=== PATIENT | male | born 1950 | race Caucasian/White ===

== ENCOUNTER 2023-06-06 10:49 | Emergency (ER) | payer MEDICARE, BC, SELFPAY ==
[2023-06-06 10:50] VITALS: BP 144/61; PULSE 54; RESP 23; TEMP 36.2; O2SAT 99; BMI 33.2
--- NOTE | 2023-06-06 11:09 | EKG12_ITS ---
Test Reason : CP Blood Pressure : / mmHG Vent. Rate : 052 BPM Atrial Rate : 052 BPM P-R Int : 180 ms QRS Dur : 080 ms QT Int : 450 ms P-R-T Axes : 000 019 033 degrees QTc Int : 418 ms Sinus bradycardia Otherwise normal ECG Confirmed by JAMA BALL, HATTIE ([id number]), newspaper or periodical editor MIA MINA ([id number]) on 06/13/2023 10:50:53 AM Referred By: RU/AR Confirmed By:HATTIE YUN MD
--- NOTE | 2023-06-06 11:10 | EDS_ITS ---
HPI History of Present Illness Chief Complaint: Chest Pain Narrative Narrative: 72-year-old male past medical history of angina states he has had chest pain for at least 20 years. He usually does not have to use any nitroglycerin or anything. He states he last had a catheterization in 2009 and had clean coronary arteries and they never had an explanation for why he gets this intermittent chest pain. He was at his primary care provider's office today at around 9:00, 2 hours ago, where he experienced 20 minutes of chest discomfort and achiness. States he broke out in a cold sweat, but no nausea or vomiting, no shortness of breath. He felt lightheaded and dizzy for just a moment, and then his symptoms resolved completely. He relates history that he is also had cough with a lot of phlegm production over the last 2 months. His legs swell especially at night for which she takes hydrochlorothiazide, and states that he has to take that at night because it is ineffective during the day. He presents because of the chest pain that he had at his doctor's office. He does not follow-up with a site acquisition manager currently because after he had his catheterization they were unsure as to the cause of his continued chest pain. [facility] Medical History Benign prostatic hyperplasia with lower urinary tract symptoms History of left heart catheterization Hypertension Home Medications epinephrine 0.3 mg/0.3 mL injection, auto-injector 0.3 mg (0.3 mL) IM X1 ##2 03/06/15 [Rx Last Taken Unknown] aspirin 81 mg chewable tablet 1 tab PO DAILY 06/06/23 [History Last Taken Unknown] carvedilol 25 mg tablet 25 mg PO DAILY 06/06/23 [History Last Taken Unknown] hydrochlorothiazide 12.5 mg capsule 12.5 mg PO DAILY 06/06/23 [History Last Taken Unknown] losartan 100 mg tablet 100 mg PO DAILY 06/06/23 [History Last Taken Unknown] montelukast 10 mg tablet 10 mg PO QHS 06/06/23 [History Last Taken Unknown] nifedipine 90 mg tablet,extended release 90 mg PO DAILY 06/06/23 [History Last Taken Unknown] nitroglycerin 0.4 mg sublingual tablet (Nitrostat) 0.4 mg sublingual Q5M 06/06/23 [History Last Taken Unknown] potassium chloride 20 mEq tablet,extended release(part/cryst) 20 meq PO DAILY 06/06/23 [History Last Taken Unknown] simvastatin 20 mg tablet 20 mg PO QHS 06/06/23 [History Last Taken Unknown] tadalafil 20 mg tablet 20 mg PO DAILY PRN 06/06/23 [History Last Taken Unknown] tamsulosin 0.4 mg capsule 0.4 mg PO QHS 06/06/23 [History Last Taken Unknown] venlafaxine 37.5 mg capsule,extended release 24 hr 37.5 mg PO DAILY 06/06/23 [History Last Taken Unknown] zolpidem 5 mg tablet 5 mg PO QHS PRN 06/06/23 [History Last Taken Unknown] Allergy/AdvReac Type Severity Reaction Status Date / Time No Known Allergies Allergy Verified 06/06/23 10:50 Surgical History Hx of appendectomy Social History Smoking Status: Never smoker ROS ROS ED ROS Narrative Constitutional: No fever, no chills. Broke out in a cold sweat. HEENT: No sore throat. No neck pain. No loss of vision. No rhinorrhea. Cardiovascular: Sternal chest achiness/discomfort, chest pain. No palpitations. Bilateral pedal edema. Respiratory: No cough, no shortness of breath. Abdominal: No abdominal pain. No nausea. No vomiting. Genitourinary: No dysuria. No hematuria. Musculoskeletal: No myalgias. No arthralgias. Neurologic: No headaches. No dizziness. Positive lightheadedness and resolved. Skin: No rash. No change in color. Psychiatric: No depression. No anxiety. EXAM Physical Exam Const Vital Signs: 06/06/23 10:50 06/06/23 10:52 06/06/23 11:24 Temperature 97.1 F L Temperature Source Oral Pulse Rate 54 L Respiratory Rate 23 H Respiratory Effort Normal Non-Labored Respiratory Pattern Normal Blood Pressure 144/61 H Blood Pressure Mean 88 Pulse Ox 99 94 Oxygen Delivery Method Room Air Room Air 06/06/23 13:00 Temperature Temperature Source Pulse Rate 57 L Respiratory Rate 15 Respiratory Effort Respiratory Pattern Blood Pressure 132/67 H Blood Pressure Mean 88 Pulse Ox 94 Oxygen Delivery Method Room Air MDM MDM MDM Narrative Medical decision making narrative: In the differential diagnosis is ACS versus aortic dissection versus pneumothorax versus pneumonia. I have low suspicion for aortic dissection as the history and physical does not support this and he does not have any tearing back pain. His symptoms have completely resolved. He has had history of angina in the past, and this is of unknown origin. Comprehensive chest pain work-up was pursued. I do not feel aspirin is indicated. EKG was obtained and interpreted by myself as sinus bradycardia at 52 bpm without ectopy or acute ST changes. No STEMI. I do feel serial troponins are indicated. I will also obtain a chest x-ray to help rule out a pneumonia. BNP was also obtained to rule out heart failure, but his pulse ox is 99% on room air and he is not ta chycardic, hence I do not feel that studies for PE are indicated. I reviewed his laboratory work from today and his white count is normal at 7.4, hemoglobin normal at 14.7, platelet count normal at 210. BMP shows normal sodium of 140, potassium also normal at 4.1 with chloride slightly elevated at 111 which I think is nonspecific. Glucose is appropriately elevated at 117 with a normal anion gap of 7. Initial high-sensitivity troponin is 12 with repeated 2 hours being 8. BNP is normal at 46.6. Chest x-ray 1 view interpreted by myself independently shows no evidence of an acute process. I reviewed the radiology report which confirms my independent interpretation. At this point in time, he is remained pain-free. This is similar to his previous chest pain that he had before and he was told by his primary care provider a long time ago that this may be coronary artery vasospasm. He has nitroglycerin at home when this happens. I feel he can be discharged safely home with follow-up to his primary care physician. He was also referred to the site acquisition manager on-call today, or he can follow-up with his previous site acquisition manager. This is as he has last been catheterized in 2009 and they can decide whether or not he requires another stress test or cardiac catheterization for his atypical chest pain. Return instructions were reviewed. Patient agreeable to the plan. I do not feel he r equires observation at this time. Disposition is discharged home in stable condition. History & Record Review Discussion w/independent historian: Patient and Friend Additional record(s) reviewed:: Prior ED visit Lab Data Attestation: I reviewed the patient's lab results. Labs: Laboratory Results - last 24 hr 06/06/23 06/06/23 11:15 13:15 WBC 7.4 RBC 4.53 L Hgb 14.7 Hct 42.9 MCV 94.7 H MCH 32.5 H MCHC 34.3 RDW Std Deviation 42.5 RDW Coeff of Rhina 12.3 Plt Count 210 MPV 9.9 Immature Gran % (Auto) 0.300 Neut % (Auto) 67.4 Lymph % (Auto) 18.6 L [place] % (Auto) 11.0 H Eos % (Auto) 2.0 Baso % (Auto) 0.7 Absolute Neuts (auto) 5.0 Absolute Lymphs (auto) 1.37 Nucleated RBC % 0 Sodium 140 Potassium 4.1 Chloride 111 H Carbon Dioxide 22.0 Anion Gap 7 BUN 26 H Creatinine 1.02 Estim Creat Clear Calc 58.21 Est GFR (MDRD) Af Amer 92 Est GFR (MDRD) Non-Af 76 BUN/Creatinine Ratio 25.5 H Glucose 117 H Calcium 9.7 Troponin I High Sens 12 8 B-Natriuretic Peptide 46.6 Radiography Diagnostic Testing: Clinical Impression(s) from Imaging Studies Chest X-Ray 06/06/23 11:25 IMPRESSION: No acute abnormality is seen. Electronically Signed: Saurabh Sandoval MD at 11:55 EST Reading Location ID and State: [facility] / [place] , Service support , Discharge Plan Triage Chief Complaint: Chest Pain ED Provider: Chase Dalton Dx/Rx/DC Orders Clinical Impression: Angina at rest, Chest pain Instructions: ED Chest Pain, Uncertain Cause Prescriptions: No Action epinephrine 0.3 MG syringe 0.3 mg IM X1 Qty: 2 0RF carvedilol 25 mg tablet 25 mg PO DAILY hydrochlorothiazide 12.5 mg capsule 12.5 mg PO DAILY losartan 100 mg tablet 100 mg PO DAILY montelukast 10 mg tablet 10 mg PO QHS nifedipine 90 mg tablet extended release 90 mg PO DAILY potassium chloride 20 mEq tablet,ER particles/crystals 20 meq PO DAILY simvastatin 20 mg tablet 20 mg PO QHS tadalafil 20 mg tablet 20 mg PO DAILY PRN Patient Comments: Take 1 tablet by mouth once daily As needed. tamsulosin 0.4 mg capsule 0.4 mg PO QHS zolpidem 5 mg tablet 5 mg PO QHS PRN Rx Instructions: 1 TABLET AT BEDTIME NEEDED FOR SEDATION FOR UP TO 21 DOSES venlafaxine 37.5 mg capsule,extended release 24hr 37.5 mg PO DAILY nitroglycerin [Nitrostat] 0.4 mg tablet, sublingual 0.4 mg sublingual Q5M Rx Instructions: do not exceed 3 doses per episode aspirin 81 mg tablet,chewable 1 tab PO DAILY Primary Care Provider: Pillo Sampson Referrals: Kaci Delgadillo MD [Med Staff - Active Staff] - As soon as possible Pillo Sampson MD [Primary Care Provider] - 3-5 Days Disposition Disposition: Home, Self Care
[2023-06-06 11:24] VITALS: O2SAT 94
--- NOTE | 2023-06-06 11:25 | RAD_ITS ---
STUDY: X-RAY CHEST REASON FOR EXAM: Male, 72 years old. Chest pain TECHNIQUE: Single AP portable view of the chest. COMPARISON: None. FINDINGS: EKG electrodes are seen. The lungs are clear and expanded. There is no demonstrated pleural abnormality. Normal size heart. Normal mediastinum and shayla. Normal visualized pulmonary arteries. There is atherosclerotic tortuosity of the aortic arch and descending thoracic aorta. There are diffuse degenerative changes of the visualized thoracic spine. Normal visualized ribs, clavicles, and shoulders. There is no demonstrated abnormality of the visualized soft tissue structures of the upper abdomen. RAD/Chest 1 View (Portable) IMPRESSION: No acute abnormality is seen. Electronically Signed: Saurabh Sandoval MD at 11:55 EST ,
[2023-06-06 11:28] LABS: Absolute Lymphocyte Count 1.37 X10^3/uL (0.83-4.51); Basophil# 0.05 X10^3/uL; Basophil% 0.7 % (0-1); Eosinophil# 0.15 X10^3/uL; Hematocrit 42.9 % (40-54); Hemoglobin 14.7 g/dL (13.0-16.5); Lymphocyte # 1.37 X10^3/ul (0.83-4.51); Lymphocyte % 18.6 % (19-41); Mean Corp Hgb Conc 34.3 g/dL (32-36); Mean Corpuscular Hgb 32.5 pg (27.0-32.0); Mean Corpuscular Volume 94.7 fL (80-94); Mean Platelet Vol. 9.9 fl (6.2-12.0); Monocyte# 0.81 X10^3/uL; NRBC Flagged by Analyzer 0 % (0-5); Neutrophil # 4.95 X10^3/uL (2.7-7.7); Neutrophil % 67.4 % (47-70); Platelet Count 210 K/mm3 (150-450); RBC Distribution Width CV 12.3 % (11.6-14.6); RBC Distribution Width SD 42.5 fl (35.1-43.9); Red Blood Count 4.53 M/mm3 (4.6-6.2); White Blood Count 7.4 K/mm3 (4.4-11.0)
[2023-06-06 11:44] LABS: Anion Gap 7 (5-15); BUN 26 mg/dL (7-18); BUN/Creat Ratio 25.5 RATIO (10-20); Calcium,Total 9.7 mg/dL (8.5-10.1); Chloride 111 mmol/L (98-107); Creatinine, Serum 1.02 mg/dL (0.70-1.30); EST Glomerular Filtration Rate 76 mL/min (>60); Est Glom Filt Rate - Afr Amer 92 mL/min (>60); Estimated Creatinine Clearance 58.21 ml/min; Glucose 117 mg/dL (74-106); Potassium 4.1 mmol/L (3.5-5.1); Sodium Level 140 mmol/L (136-145); Troponin-I HS (w/2H Reflex) 12 pg/mL (3.0-78.0)
[2023-06-06 11:51] LABS: BNP,B-Type NATRIURETIC PEPTIDE 46.6 pg/mL (0-100)
[2023-06-06 13:00] VITALS: BP 132/67; PULSE 57; RESP 15; O2SAT 94
[2023-06-06 13:18] LABS: Reflex Troponin-HS? (from REC) Y
[2023-06-06 13:42] LABS: Troponin-I HS 8 pg/mL (3.0-78.0)
[2023-06-06 14:36] VITALS: BP 134/78
== END 2023-06-06 14:37 | disposition home or self-care (01) ==
PROVIDERS: Emergency Provider Emergency Medicine; PCP Family Medicine; Visit Provider Emergency Medicine
DX: R07.9 Chest pain, unspecified (principal); I20.9 Angina pectoris, unspecified; I10 Essential (primary) hypertension; Z79.899 Other long term (current) drug therapy; Z79.82 Long term (current) use of aspirin; Z90.49 Acquired absence of other specified parts of digestive tract
CPT/HCPCS: 71045; 80048; 83880; 84484; 85025; 93005; 99285; A4216

== ENCOUNTER 2024-05-08 08:05 | Emergency (ER) | payer MEDICARE, BC, SELFPAY ==
[2024-05-08] VITALS (7 sets, daily range): BP systolic 138–166; BP diastolic 65–88; PULSE 43–52; RESP 11–18; TEMP 36.4–36.9; O2SAT 97–98; BMI 31.3
--- NOTE | 2024-05-08 08:17 | ED.VIS.CHEST ---
HPI History of Present Illness Chief Complaint: Chest Pain Informant: patient Onset/Context/Timing Onset: Today Activity at onset: gradual Timing: Continuous Quality: Positive for Aching Location: Left Parasternal Worsened By: Breathing (Deep breathing) Relieved By: - (Shallow breathing) Associated Symptoms: Positive for Lightheadedness; Negative for Nausea, Vomiting, Diaphoresis, Dyspnea, Cough, Fever, Acid Reflux or Palpitations Narrative Narrative: Patient presents with chest pain that began this morning. Patient states it is gradually gotten worse over the past hour. Patient states he took a regular strength aspirin and 2 sublingual nitroglycerin tablets at home with no improvement. Patient states the pain is aching. Patient states it is over the left parasternal area. Patient states he had similar episodes 2 to 3 days ago that resolved spontaneously. Patient states his pain is worse with deep breathing and better with shallow breathing. Patient admits to some mild lightheadedness. Patient denies any shortness of breath or cough. Patient denies any fevers or chills. Patient denies any nausea, vomiting, or diaphoresis. CVD Risk Factors: Positive for Hypertension and Hypercholesterolemia; Negative for Diabetes, Family History 1' </=55 or Smoking PE Risk Factors: Negative for Recent Travel/Surgery, Recent Immobilization, Prior DVT or PE, Cancer or OCP + Smoking + >/=35 [facility] Medical History (Updated 05/08/24 @ 12:[address] Mando Oreilly, DO) Benign prostatic hyperplasia with lower urinary tract symptoms Hypertension History of left heart catheterization Home Medications ?Medication ?Instructions ?Recorded ?Last Taken ?Type epinephrine 0.3 mg/0.3 mL 0.3 mg (0.3 mL) IM X1 ##2 03/06/15 Unknown Rx injection, auto-injector aspirin 81 mg chewable tablet 1 tab PO DAILY 06/06/23 Unknown History carvedilol 25 mg tablet 25 mg PO BID 06/06/23 Unknown History hydrochlorothiazide 12.5 mg capsule 12.5 mg PO DAILY 06/06/23 Unknown History losartan 100 mg tablet 100 mg PO DAILY 06/06/23 Unknown History montelukast 10 mg tablet 10 mg PO QHS 06/06/23 Unknown History nifedipine 90 mg tablet,extended 90 mg PO DAILY 06/06/23 Unknown History release nitroglycerin 0.4 mg sublingual 0.4 mg sublingual Q5M 06/06/23 Unknown History tablet (Nitrostat) potassium chloride 20 mEq 20 meq PO DAILY 06/06/23 Unknown History tablet,extended release(part/cryst) simvastatin 20 mg tablet 20 mg PO QHS 06/06/23 Unknown History tadalafil 20 mg tablet 20 mg PO DAILY PRN 06/06/23 Unknown History tamsulosin 0.4 mg capsule 0.4 mg PO QHS 06/06/23 Unknown History venlafaxine 37.5 mg 37.5 mg PO DAILY 06/06/23 Unknown History capsule,extended release 24 hr zolpidem 5 mg tablet 5 mg PO QHS PRN 06/06/23 Unknown History Allergy/AdvReac Type Severity Reaction Status Date / Time No Known Allergies Allergy Verified 05/08/24 08:06 Surgical History (Updated 05/08/24 @ 08:[address] Mando Oreilly DO) History of prostate surgery Hx of rotator cuff surgery Hx of cholecystectomy Hx of appendectomy Social History Smoking Status: Never smoker ROS ROS ED Constitutional Constitutional ED: Denies chills or fever(s) Eyes Eyes: Denies blurry vision or change in vision ENT ENT ED: Denies rhinorrhea or sore throat Cardiovascular Cardiovascular: Reports as per HPI and chest pain; Denies palpitations Respiratory/Chest Respiratory/Chest: Denies cough or dyspnea Gastrointestinal Gastrointestinal: Denies nausea or vomiting Genitourinary Genitourinary ED: Denies dysuria or hematuria Musculoskeletal Musculoskeletal: Denies back pain or neck pain Integumentary Denies abscess or rash Neurologic Neurologic: Denies headache(s) or weakness Allergic/Immunologic Allergic/Immunologic ED: Denies mouth swelling or urticaria EXAM Physical Exam Const Vital Signs: 05/08/24 08:06 05/08/24 08:22 05/08/24 08:35 Temperature 97.6 F L Temperature Source Temporal Pulse Rate 50 L Respiratory Rate 18 Respiratory Effort Normal Blood Pressure 138/65 H Blood Pressure Mean 89 Pulse Ox 98 Oxygen Delivery Method Room Air Room Air 05/08/24 09:11 05/08/24 10:00 05/08/24 11:00 Temperature Temperature Source Pulse Rate 48 L 43 L 47 L Respiratory Rate 15 12 14 Respiratory Effort Blood Pressure 142/71 H 143/70 H 166/69 H Blood Pressure Mean 94 94 101 Pulse Ox 98 97 97 Oxygen Delivery Method Room Air 05/08/24 12:00 05/08/24 12:13 Temperature 98.4 F Temperature Source Oral Pulse Rate 52 L 45 L Respiratory Rate 15 11 L Respiratory Effort Blood Pressure 160/73 H 146/88 H Blood Pressure Mean 102 107 Pulse Ox 98 98 Oxygen Delivery Method Room Air Room Air Positive well nourished and well developed General Appearance ED: well developed and NAD HEENT Reports moist mucous membranes Neck supple and no JVD Chest Wall Chest Narrative: There is mild tenderness over the left parasternal area. There is no bony crepitance or step-off. There is no subcutaneous emphysema palpated. Resp normal respiratory effort and clear to auscultation bilaterally Cardio regular rate and regular rhythm GI soft to palpation, non-tender and non-distended Extremity General Extremety ED: Negative for tenderness Neuro oriented x3, CN's II-XII intact bilaterally and no sensory deficits noted Sensorium / Orientation: awake and alert Motor Exam: strength 5/5 throughout Psych mental status grossly normal Heart Score History: Slightly/Non-Suspicious ECG: Normal Age: >/= 65 years Risk Factors: 1 or 2 Risk Factors Score: 3 MDM MDM MDM Narrative Medical decision making narrative: Differential diagnosis includes cardiac dysrhythmia, cardiac ischemia, pneumonia, pneumothorax, musculoskeletal, electrolyte abnormality, and anxiety. EKG will be obtained to assess for cardiac dysrhythmia and cardiac ischemia. Chest x-ray will be obtained to assess for pneumonia and pneumothorax. CBC will be obtained to assess for leukocytosis and anemia. Basic metabolic profile will be obtained to assess for electrolyte abnormality and renal function. High-sensitivity troponin will be obtained to assess for cardiac ischemia. 2-hour repeat high-sensitivity troponin will be obtained to assess for ongoing cardiac ischemia. Lab Data Attestation: I reviewed the patient's lab results. Lab results narrative: CBC was reviewed and was essentially within normal limits. Basic metabolic profile was reviewed and was essentially within normal limits. Initial high-sensitivity troponin was reviewed and was normal at 10. 2-hour repeat high-sensitivity troponin was reviewed and was normal at 11. Labs: Laboratory Results - last 24 hr 05/08/24 05/08/24 08:50 10:57 WBC 5.5 RBC 3.93 L Hgb 13.0 Hct 37.6 L MCV 95.7 H MCH 33.1 H MCHC 34.6 RDW Std Deviation 42.5 RDW Coeff of Rhina 12.1 Plt Count 189 MPV 9.4 Immature Gran % (Auto) 0.400 Neut % (Auto) 56.6 Lymph % (Auto) 23.9 [place] % (Auto) 13.7 H Eos % (Auto) 4.7 Baso % (Auto) 0.7 Absolute Neuts (auto) 3.1 Absolute Lymphs (auto) 1.32 Nucleated RBC % 0 Sodium 141 Potassium 3.5 Chloride 112 H Carbon Dioxide 25.0 Anion Gap 4 L BUN 21 H Creatinine 0.92 Estim Creat Clear Calc 75.67 Est GFR (MDRD) Af Amer 103 Est GFR (MDRD) Non-Af 85 BUN/Creatinine Ratio 22.8 H Glucose 110 H Calcium 9.4 Troponin I High Sens 10 11 Radiography Chest X-Ray - ED: 1 View, Read by ED Physician, Read by Radiologist and No Acute Disease Diagnostic Testing: Clinical Impression(s) from Imaging Studies Chest X-Ray 05/08/24 09:05 IMPRESSION: No acute cardiopulmonary process identified. Electronically Signed: Genesis Moon MD at 9:39 EDT , Portable 1 view chest x-ray was obtained. On my independent interpretation, lung gunderson are clear. There is normal cardiac silhouette. Bony thorax is normal. There is no acute process noted. Radiologist also interpreted the x-ray and agrees. EKG Initial EKG: Attestation: I personally reviewed and interpreted this EKG as follows: Interpretation: No Acute Injury Pattern and Sinus Bradycardia (47) Comments: EKG was obtained. On my independent interpretation, it showed a sinus bradycardia with a rate of 47. MS interval, QRS interval, and QTc intervals were all normal. [place] was normal. There are no acute ST or T wave changes. Prior EKG tracings: available for review Prior: Unchanged (06/06/2023) Treatment and Re-Evaluation :: Patient took 1 regular strength aspirin at home prior to arrival. Patient also took 2 sublingual nitroglycerin tablets prior to arrival. Patient states that neither of these change his pain in any way. Patient was given a dose of ibuprofen here. Patient states that this did not help his pain. The patient was advised of his findings. Patient has a HEART score of 3. Patient was advised that this is low risk for acute cardiac event. Patient was instructed to follow-up with his primary care physician in 5 to 7 days. Patient was instructed to return if worse in any way. Patient understood and was agreeable with the plan. All questions were answered. Discharge Plan Triage Chief Complaint: Chest Pain ED Provider: Mando Oreilly Dx/Rx/DC Orders Clinical Impression: Chest pain of uncertain etiology, Hypertension Instructions: ED Chest Pain, Uncertain Cause, ED Hypertension, Established Prescriptions: No Action epinephrine 0.3 MG syringe 0.3 mg IM X1 Qty: 2 0RF carvedilol 25 mg tablet 25 mg PO BID hydrochlorothiazide 12.5 mg capsule 12.5 mg PO DAILY losartan 100 mg tablet 100 mg PO DAILY montelukast 10 mg tablet 10 mg PO QHS nifedipine 90 mg tablet extended release 90 mg PO DAILY potassium chloride 20 mEq tablet,ER particles/crystals 20 meq PO DAILY simvastatin 20 mg tablet 20 mg PO QHS tadalafil 20 mg tablet 20 mg PO DAILY PRN Patient Comments: Take 1 tablet by mouth once daily As needed. tamsulosin 0.4 mg capsule 0.4 mg PO QHS zolpidem 5 mg tablet 5 mg PO QHS PRN Rx Instructions: 1 TABLET AT BEDTIME NEEDED FOR SEDATION FOR UP TO 21 DOSES venlafaxine 37.5 mg capsule,extended release 24hr 37.5 mg PO DAILY nitroglycerin [Nitrostat] 0.4 mg tablet, sublingual 0.4 mg sublingual Q5M Rx Instructions: do not exceed 3 doses per episode aspirin 81 mg tablet,chewable 1 tab PO DAILY Primary Care Provider: Pillo Sampson Referrals: Pillo Sampson MD [Primary Care Provider] - 3-5 Days Print Language: Kyrgyz Disposition Disposition: Home, Self Care
[2024-05-08 08:56] LABS: Absolute Lymphocyte Count 1.32 X10^3/uL (0.83-4.51); Absolute Neutrophil Count 3.1 X10^3/uL (2.0-7.7); Basophil# 0.04 X10^3/uL; Basophil% 0.7 % (0-1); Eosinophil# 0.26 X10^3/uL; Eosinophils% 4.7 % (0-5); Hematocrit 37.6 % (40-54); Lymphocyte # 1.32 X10^3/ul (0.83-4.51); Lymphocyte % 23.9 % (19-41); Mean Corp Hgb Conc 34.6 g/dL (32-36); Mean Corpuscular Hgb 33.1 pg (27.0-32.0); Mean Corpuscular Volume 95.7 fL (80-94); Mean Platelet Vol. 9.4 fl (6.2-12.0); Monocyte# 0.76 X10^3/uL; Monocyte% 13.7 % (0-10); NRBC Flagged by Analyzer 0 % (0-5); Neutrophil # 3.13 X10^3/uL (2.7-7.7); Neutrophil % 56.6 % (47-70); Platelet Count 189 K/mm3 (150-450); RBC Distribution Width CV 12.1 % (11.6-14.6); RBC Distribution Width SD 42.5 fl (35.1-43.9); Red Blood Count 3.93 M/mm3 (4.6-6.2); White Blood Count 5.5 K/mm3 (4.4-11.0)
--- NOTE | 2024-05-08 09:05 | RAD_ITS ---
HISTORY: chest pain. TECHNIQUE: XR Chest 1 View. COMPARISON: 06/06/2023. FINDINGS: CARDIOMEDIASTINAL BORDERS: Cardiac silhouette within normal limits in size. Mediastinal contour unremarkable. LUNGS: Minimal linear atelectasis in the right lung base. PLEURA: No pleural effusion or pneumothorax seen. OSSEOUS STRUCTURES: Mild degenerative change. RAD/Chest 1 View (Portable) IMPRESSION: No acute cardiopulmonary process identified. Electronically Signed: Genesis Moon MD at 9:39 EDT ,
[2024-05-08 09:25] LABS: Anion Gap 4 (5-15); BUN 21 mg/dL (7-18); BUN/Creat Ratio 22.8 RATIO (10-20); Calcium,Total 9.4 mg/dL (8.5-10.1); Chloride 112 mmol/L (98-107); Creatinine, Serum 0.92 mg/dL (0.70-1.30); EST Glomerular Filtration Rate 85 mL/min (>60); Est Glom Filt Rate - Afr Amer 103 mL/min (>60); Estimated Creatinine Clearance 75.67 ml/min; Glucose 110 mg/dL (74-106); Potassium 3.5 mmol/L (3.5-5.1); Sodium Level 141 mmol/L (136-145); Troponin-I HS (w/2H Reflex) 10 pg/mL (3.0-78.0)
[2024-05-08 10:53] LABS: Reflex Troponin-HS? (from REC) Y
[2024-05-08 11:24] LABS: Troponin-I HS 11 pg/mL (3.0-78.0)
[2024-05-08] MEDS: Ibuprofen 600 MG Tablet PO (11:38)
== END 2024-05-08 12:53 | disposition home or self-care (01) ==
PROVIDERS: Emergency Provider Emergency Medicine; PCP Family Medicine; Visit Provider Emergency Medicine
DX: R07.9 Chest pain, unspecified (principal); I10 Essential (primary) hypertension; E78.00 Pure hypercholesterolemia, unspecified; Z79.82 Long term (current) use of aspirin; Z79.899 Other long term (current) drug therapy; N40.0 Benign prostatic hyperplasia without lower urinary tract symptoms; Z90.49 Acquired absence of other specified parts of digestive tract
CPT/HCPCS: 71045; 80048; 84484; 85025; 93005; 99284; A4216